=== PATIENT | male | born 1995 | race Caucasian/White ===

== ENCOUNTER 2023-07-22 12:23 | Emergency (ER) | payer OTHER ==
[~2023-07-22] VITALS: Ht 182.9 cm; Wt 105.0 kg
[2023-07-22 12:29] VITALS: O2SAT 100
[2023-07-22] MEDS: ACETAMINOPHEN 325MG TABLET PO ONE (14:03)
[2023-07-22] MEDS: LIDOCAINE HCL 1% 20ML VIAL INFIL ONE (14:03)
[2023-07-22 16:07] VITALS: BP 128/77; PULSE 88; RESP 18; TEMP 98
== END 2023-07-22 16:07 | disposition home or self-care (01) ==
LOC: ER 12:23
DX: S61.211A Laceration without foreign body of left index finger without damage to nail, initial encounter (principal); W18.39XA Other fall on same level, initial encounter; Y93.89 Activity, other specified; Y92.89 Other specified places as the place of occurrence of the external cause; Y99.8 Other external cause status
CPT/HCPCS: 73120; 12002; 99283; J3490; Z7610

== ENCOUNTER 2023-07-30 13:53 | Emergency (ER) | payer OTHER ==
[~2023-07-30] VITALS: Ht 182.9 cm; Wt 106.0 kg
[2023-07-30 14:12] VITALS: BP 152/96; PULSE 97; RESP 16; TEMP 98; O2SAT 99
== END 2023-07-30 15:29 | disposition home or self-care (01) ==
LOC: ER 13:53
DX: S61.214D Laceration without foreign body of right ring finger without damage to nail, subsequent encounter (principal); Z48.02 Encounter for removal of sutures; X58.XXXD Exposure to other specified factors, subsequent encounter
CPT/HCPCS: 99281; Z7610 ×2